=== PATIENT | female | born 1960 | race Caucasian/White ===

== ENCOUNTER 2022-12-10 21:54 | Emergency (ER) | payer MEDICARE, MEDICAID, SELFPAY ==
[2022-12-10 21:55] VITALS: BP 170/55; PULSE 72; RESP 16; TEMP 36.8; O2SAT 99; BMI 25.9
--- NOTE | 2022-12-10 22:22 | ED.VIS.GI ---
HPI HPI - GI History of Present Illness Chief Complaint: Abd Pain Informant: patient and family Abdominal Pain/Flank Pain Onset: Weeks (2) Context: Gradual Onset Timing: Continuous Quality: Stabbing Location: Epigastric, RUQ and LUQ Worsened by: Nothing Relieved by: Nothing Nausea/Vomiting/Emesis GI Symptom: Positive for Nausea and Vomiting Quality: Positive for Nonbilious; Negative for Blood streaks, Coffee ground or Hematemesis Episodes: 4 Diarrhea/Melena/Hematochezia GI Symptom: Positive for Diarrhea and Melena; Negative for Hematochezia Stool Quality: Positive for Black Narrative Narrative: Patient presents with abdominal pain that has been getting worse over the past 2 weeks. Patient has been having pain over her upper abdomen since she got her hepatitis C shot 2 weeks ago. Patient describes it as stabbing. Patient states nothing makes it better nothing makes it worse. Patient denies any radiation of the pain. Patient does admit to some nausea and vomiting but denies any hematemesis or coffee-ground emesis. Patient admits to some diarrhea with black tarry stools. Patient admits to some urinary frequency but denies any dysuria or hematuria. Patient denies any fevers or chills. [facility] Medical History abnormal calcium level Anemia Back problem Blood clot in vein Cancer Chronic bronchitis GERD (gastroesophageal reflux disease) GI problem Heart murmur High triglycerides Hyperlipidemia Kidney disease Kidney failure Neuropathy Stroke Type 1 diabetes Vision problem Home Medications clopidogrel 75 mg tablet (Plavix) 75 mg PO DAILY 01/27/19 [History Last Taken Unknown] esomeprazole magnesium 40 mg capsule,delayed release 40 mg PO DAILY 01/27/19 [History Last Taken Unknown] meclizine 12.5 mg tablet 12.5 mg PO BID 01/27/19 [History Last Taken Unknown] multivitamin,Ca,mineral-folic acid-herbal no.157 400 mcg tablet (Estroven Maximum Strength) 1 tab PO DAILY 01/27/19 [History Last Taken Unknown] amlodipine 2.5 mg tablet 2.5 mg PO DAILY 11/04/19 [History Last Taken Unknown] aspirin 81 mg tablet,delayed release (Adult Aspirin Regimen) 81 mg PO DAILY 02/05/20 [History Last Taken Unknown] atorvastatin 80 mg tablet 80 mg PO QHS 02/05/20 [History Last Taken Unknown] fenofibrate 54 mg tablet 54 mg PO DAILY 02/05/20 [History Last Taken Unknown] rhubarb root extract 4 mg tablet (Estroven Complete Menopause Relief) 4 mg PO QHS 02/05/20 [History Last Taken Unknown] cholecalciferol (vitamin D3) 25 mcg (1,000 unit) capsule 25 mcg PO DAILY 05/13/20 [History Last Taken Unknown] pramipexole 0.125 mg tablet 0.125 mg PO BID 10/26/20 [History Last Taken Unknown] sertraline 100 mg tablet 150 mg PO DAILY 10/26/20 [History Last Taken Unknown] torsemide 20 mg tablet 20 mg PO .COMPLEX 04/26/21 [History Last Taken Unknown] Accu-Chek Guide test strips (blood sugar diagnostic) #100 ea 03/27/22 [Rx Last Taken Unknown] glucagon (human recombinant) 1 mg solution for injection 1 mg subcut ONCE #1 ea 04/12/22 [Rx Last Taken Unknown] insulin lispro 100 unit/mL subcutaneous solution (Humalog U-100 Insulin) 100 unit subcut DAILY #30 mL 05/17/22 [Rx Last Taken Unknown] sevelamer carbonate 800 mg tablet mg 12/10/22 [History Last Taken Unknown] sucralfate 1 gram tablet (Carafate) 1 g PO BID #20 tabs 12/11/22 [Rx Last Taken Unknown] Allergy/AdvReac Type Severity Reaction Status Date / Time acetaminophen [From Percocet] Allergy Unknown Unknown Verified 12/10/22 21:58 hydrocodone [From Vicodin] Allergy Unknown Unknown Verified 12/10/22 21:58 morphine Allergy Unknown Unknown Verified 12/10/22 21:58 oxycodone [From Percocet] Allergy Unknown Unknown Verified 12/10/22 21:58 Family History Unknown Alcoholism Colon cancer Cancer Depression Diabetes Myocardial infarction Hypertension Hyperlipidemia Kidney disease Liver disease Respiratory disease CVA (cerebral vascular accident) Surgical History dialysis fistula graph under collar bone for dialysis History of hysterectomy History of lumpectomy History of shoulder surgery History of vitrectomy laser eye surgery Vascular dialysis catheter in place Social History Smoking Status: Former smoker alcohol intake: never substance use type: does not use ROS ROS ED Constitutional Constitutional ED: Reports chills, fever(s) and subjective Eyes Eyes: Denies blurry vision or change in vision ENT ENT ED: Denies rhinorrhea or sore throat Cardiovascular Cardiovascular: Reports chest pain; Denies palpitations Respiratory/Chest Respiratory/Chest: Reports cough; Denies dyspnea Gastrointestinal Gastrointestinal: Reports abdominal pain, diarrhea, melena, nausea and vomiting Genitourinary Genitourinary ED: Reports urinary frequency; Denies dysuria or hematuria Musculoskeletal Musculoskeletal: Reports neck pain; Denies back pain Integumentary Denies abscess or rash Neurologic Neurologic: Reports headache(s); Denies weakness Allergic/Immunologic Allergic/Immunologic ED: Denies mouth swelling or urticaria EXAM Physical Exam Const Vital Signs: 12/10/22 21:55 12/10/22 23:53 Temperature 98.3 F Temperature Source Temporal Pulse Rate 72 71 Respiratory Rate 16 16 Blood Pressure 170/55 H 182/67 H Blood Pressure Mean 93 105 Pulse Ox 99 97 Oxygen Delivery Method Room Air Room Air Positive well nourished and well developed General Appearance ED: well developed HEENT Reports moist mucous membranes Neck supple and no JVD Resp normal respiratory effort and clear to auscultation bilaterally Cardio regular rate, regular rhythm and no murmurs GI normal to inspection, nondistended, normoactive bowel sounds Palpation: soft and tender epigastric, LUQ and RUQ; Negative for guarding or rebound tenderness present Extremity normal to inspection General Extremety ED: Negative for edema or tenderness General Extremity: Negative for edema Neuro oriented x3, CN's II-XII intact bilaterally and no sensory deficits noted Sensorium / Orientation: alert Motor Exam: strength 5/5 throughout Psych mental status grossly normal Skin no rashes or lesions noted MDM MDM MDM Narrative Medical decision making narrative: Differential diagnosis includes gastritis, gastric ulcer, duodenal ulcer, pancreatitis, gastrointestinal bleeding, urinary tract infection, pyelonephritis, upper gastrointestinal bleeding, and gastroenteritis. CBC will be obtained to assess for anemia and leukocytosis. Comprehensive metabolic profile will be obtained to assess for hepatic function, renal function, and electrolyte abnormality. Lipase will be obtained to assess for pancreatitis. Urinalysis will be obtained to assess for urinary tract infection and pyelonephritis. CT scan of the abdomen pelvis will be obtained to assess for bowel obstruction and perforation. Stool for occult blood will be obtained to assess for gastrointestinal bleeding. History & Record Review Discussion w/independent historian: Patient and Family Additional record(s) reviewed:: Prior labs Lab Data Attestation: I reviewed the patient's lab results. Lab results narrative: CBC was reviewed. Hemoglobin was 11.4 hematocrit was 34.9. These were increased compared to previous result. Comprehensive metabolic profile was reviewed. BUN was 32 and creatinine was 4.71. These are consistent with prior results. Lipase was reviewed and was normal at 16. Urinalysis was reviewed. There is no evidence of urinary tract infection or hematuria. Labs: Laboratory Results - last 24 hr 12/10/22 12/10/22 22:55 23:20 WBC 6.6 RBC 3.39 L Hgb 11.4 L Hct 34.9 L MCV 102.9 H MCH 33.6 H MCHC 32.7 RDW Std Deviation 65.5 H RDW Coeff of [place] 17.1 H Plt Count 147 L MPV 12.4 H Immature Gran % (Auto) 0.300 Neut % (Auto) 53.5 Lymph % (Auto) 18.1 L [place] % (Auto) 23.1 H Eos % (Auto) 3.6 Baso % (Auto) 1.4 H Absolute Neuts (auto) 3.5 Absolute Lymphs (auto) 1.19 Nucleated RBC % 0 Differential Comment SCANNED Anisocytosis 2+ Macrocytosis 1+ Ovalocytes RARE Sodium 140 Potassium 3.4 L Chloride 104 Carbon Dioxide 30.0 Anion Gap 6 BUN 32 H Creatinine 4.71 H Estim Creat Clear Calc 9.58 Est GFR (MDRD) Af Amer 12 L Est GFR (MDRD) Non-Af 10 L BUN/Creatinine Ratio 6.8 L Glucose 110 H Calcium 9.2 Total Bilirubin 0.70 AST 19 ALT 30 Alkaline Phosphatase 123 H Total Protein 6.0 L Albumin 3.7 Globulin 2.3 Albumin/Globulin Ratio 1.6 Lipase 16 Urine Color Yellow Urine Clarity Clear Urine pH 7.0 Ur Specific [place] 1.010 Urine Protein 500 H Urine Glucose (UA) 1000 H Urine Ketones Negative Urine Occult Blood 50 H Urine Nitrite Negative Urine Bilirubin Negative Urine Urobilinogen Normal Ur Leukocyte Esterase 25 H Urine RBC 0-5 SEEN Urine WBC 0-5 SEEN Ur Squamous Epith Cells 0-5 SEEN Urine Bacteria 0 SEEN Urine Mucus 0 SEEN Treatment and Re-Evaluation :: Patient was given IV fluids, Bentyl, and Zofran. Patient was feeling better on reevaluation. Patient was advised of her findings. Stool was negative for occult blood. Patient was advised that this could be from a peptic ulcer disease. Patient is on Nexium already. Patient was given a prescription for Carafate. Patient was given a referral for gastroenterology. Patient was instructed to start with a bland diet and advance as tolerated. Patient was instructed to follow-up with her primary care physician in 5 to 7 days. Patient understood and was agreeable with plan. All questions were answered. Discharge Plan Triage Chief Complaint: Abd Pain ED Provider: Toney Jones Dx/Rx/DC Orders Clinical Impression: Type 1 DM with hypertension and ESRD on dialysis, Abdominal pain Instructions: ED Abdominal Pain Unkn Cause Fem Prescriptions: New sucralfate [Carafate] 1 gram tablet 1 g PO BID Qty: 20 0RF No Action meclizine 12.5 mg tablet 12.5 mg PO BID esomeprazole magnesium 40 mg capsule,delayed release(DR/EC) 40 mg PO DAILY clopidogrel [Plavix] 75 mg tablet 75 mg PO DAILY Estroven Maximum Strength 400 mcg tablet 1 tab PO DAILY amlodipine 2.5 mg tablet 2.5 mg PO DAILY Estroven Cmplt Menopause Rlf 4 mg tablet 4 mg PO QHS fenofibrate 54 mg tablet 54 mg PO DAILY Patient Comments: TAKE 1 TABLET BY MOUTH ONCE DAILY AT BEDTIME atorvastatin 80 mg tablet 80 mg PO QHS Patient Comments: TAKE 1 TABLET BY MOUTH ONCE DAILY AT BEDTIME aspirin [Adult Aspirin Regimen] 81 mg tablet,delayed release (DR/EC) 81 mg PO DAILY cholecalciferol (vitamin D3) 25 mcg (1,000 unit) capsule 25 mcg PO DAILY sertraline 100 mg tablet 150 mg PO DAILY Patient Comments: TAKE 1 & 1 2 (ONE & ONE HALF) TABLETS BY MOUTH ONCE DAILY pramipexole 0.125 mg tablet 0.125 mg PO BID Patient Comments: TAKE 1 TABLET BY MOUTH AT BEDTIME torsemide 20 mg tablet 20 mg PO .COMPLEX Patient Comments: TAKE 1 TABLET BY MOUTH ONCE DAILY ON SUNDAY, SUNDAY, AND SUNDAY ONLY Rx Instructions: 20 mg orally SUNDAY,SUNDAY, SUNDAY,SUNDAY; sevelamer carbonate 800 mg tablet Patient Comments: TAKE 3 TABLETS BY MOUTH WITH MAIN MEALS (BREAKFAST AND DINNER) AND TAKE 1 TO 2 TABLETS BY MOUTH WITH SNACKS (DME) Accu-Chek Guide test strips Strip See Rx Instructions .Route Qty: 100 6RF Rx Instructions: twice daily Glucagon Emergency Kit (human) 1 mg recon soln 1 mg SC ONCE Qty: 1 5RF insulin lispro [Humalog U-100 Insulin] 100 unit/mL solution 100 unit SC DAILY Qty: 30 11RF Rx Instructions: via insulin pump Primary Care Provider: Zee Cast Referrals: Zee Cast DO [Primary Care Provider] - 5-7 Days Telly Kirk DO [Med Staff - Active Staff] - 5-7 Days Disposition Disposition: Home, Self Care
[2022-12-10 23:04] LABS: Absolute Lymphocyte Count 1.19 X10^3/uL (0.83-4.51); Absolute Neutrophil Count 3.5 X10^3/uL (2.0-7.7); Basophil# 0.09 X10^3/uL; Basophil% 1.4 % (0-1); Eosinophil# 0.24 X10^3/uL; Eosinophils% 3.6 % (0-5); Hematocrit 34.9 % (37-47); Hemoglobin 11.4 g/dL (12.0-15.0); Lymphocyte # 1.19 X10^3/ul (0.83-4.51); Lymphocyte % 18.1 % (19-41); Mean Corp Hgb Conc 32.7 g/dL (32-36); Mean Corpuscular Hgb 33.6 pg (27.0-32.0); Mean Corpuscular Volume 102.9 fL (81-99); Mean Platelet Vol. 12.4 fl (6.2-12.0); Monocyte# 1.52 X10^3/uL; Monocyte% 23.1 % (0-10); NRBC Flagged by Analyzer 0 % (0-5); Neutrophil # 3.52 X10^3/uL (2.7-7.7); Neutrophil % 53.5 % (47-70); POSITIVE DIFFERENTIAL YES; POSITIVE MORPHOLOGY YES; Platelet Count 147 K/mm3 (150-450); RBC Distribution Width CV 17.1 % (11.6-14.6); RBC Distribution Width SD 65.5 fl (35.1-43.9); Red Blood Count 3.39 M/mm3 (4.2-5.4); White Blood Count 6.6 K/mm3 (4.4-11.0)
[2022-12-10 23:06] LABS: Differential Indicated SCAN CRITERIA MET
[2022-12-10 23:20] LABS: ALB/GLOB Ratio 1.6 RATIO (0.9-2.4); AST(SGOT) 19 U/L (15-37); Alanine Aminotransfer ALT/SGPT 30 U/L (13-56); Albumin, Serum 3.7 g/dL (3.2-5.0); Alkaline Phosphatase 123 U/L (45-117); Anion Gap 6 (5-15); BUN 32 mg/dL (7-18); BUN/Creat Ratio 6.8 RATIO (10-20); Calcium,Total 9.2 mg/dL (8.5-10.1); Chloride 104 mmol/L (98-107); Creatinine, Serum 4.71 mg/dL (0.55-1.02); EST Glomerular Filtration Rate 10 mL/min (>60); Est Glom Filt Rate - Afr Amer 12 mL/min (>60); Estimated Creatinine Clearance 9.58 ml/min; Globulin 2.3 g/dL (2.2-4.2); Glucose 110 mg/dL (74-106); Lipase 16 U/L (13-75); Potassium 3.4 mmol/L (3.5-5.1); Sodium Level 140 mmol/L (136-145)
[2022-12-10 23:27] LABS: Anisocytosis 2+; Differential Comment SCANNED; Macrocytosis 1+; Ovalocyte RARE
[2022-12-10] MEDS: Dicyclomine 20 MG/2 ML Vial IM (23:27)
[2022-12-10] MEDS: 0.9% Normal Saline 1,000 ML 1000 ML IV (23:33)
[2022-12-10] MEDS: Ondansetron ODT 4 MG Tablet PO (23:43)
[2022-12-10 23:50] LABS: Bacteria 0 SEEN /hpf (None Seen); Mucous, Urine 0 SEEN /hpf (<or=2+)
[2022-12-10 23:51] LABS: Color, Urine Yellow (Yellow); Glucose, Dipstick 1000 mg/dl (Normal); Ketone-Dipstick Negative (Negative); Leukocyte Esterase-Dipstick 25 /ul (Negative); Nitrite-Dipstick Negative (Negative); Occult Blood-Urine 50 /ul (Negative); Protein-Dipstick 500 mg/dl (Negative); Urine Bilirubin Dipstick Negative (Negative); Urine Clarity Clear (Clear); Urine Urobilinogen Normal (Normal)
[2022-12-10 23:53] VITALS: BP 182/67; PULSE 71; RESP 16; O2SAT 97
[2022-12-11 00:08] LABS: Red Blood Cells-Urine 0-5 SEEN /hpf (0-5); Squamous Epithelial Cells - UA 0-5 SEEN /hpf (5-10); White Blood Cells 0-5 SEEN /hpf (0-5)
[2022-12-11 01:01] VITALS: PULSE 72; RESP 19; O2SAT 97
== END 2022-12-11 01:25 | disposition home or self-care (01) ==
PROVIDERS: Emergency Provider Emergency Medicine; PCP Family Medicine; Visit Provider Emergency Medicine
DX: R11.2 Nausea with vomiting, unspecified (principal); Z99.2 Dependence on renal dialysis; E10.22 Type 1 diabetes mellitus with diabetic chronic kidney disease; E10.40 Type 1 diabetes mellitus with diabetic neuropathy, unspecified; I12.0 Hypertensive chronic kidney disease with stage 5 chronic kidney disease or end stage renal disease; N18.6 End stage renal disease; Z79.4 Long term (current) use of insulin; Z87.891 Personal history of nicotine dependence; E78.5 Hyperlipidemia, unspecified; R19.7 Diarrhea, unspecified; R10.9 Unspecified abdominal pain; B19.20 Unspecified viral hepatitis C without hepatic coma; Z86.73 Personal history of transient ischemic attack (TIA), and cerebral infarction without residual deficits; K21.9 Gastro-esophageal reflux disease without esophagitis; Z79.899 Other long term (current) drug therapy; Z79.82 Long term (current) use of aspirin; Z79.85 Long-term (current) use of injectable non-insulin antidiabetic drugs; Z90.710 Acquired absence of both cervix and uterus
CPT/HCPCS: 80053; 81001; 82274; 83690; 85025; 96361; 96372; 96374; 99282; J7030; A4216

== ENCOUNTER 2023-12-02 04:04 | Emergency (ER) | payer MEDICARE, MEDICAID, SELFPAY ==
[2023-12-02 04:05] VITALS: BP 154/64; PULSE 94; RESP 11; TEMP 36.2; O2SAT 96; BMI 25.7
--- NOTE | 2023-12-02 04:39 | EKG12_ITS ---
Test Reason : MHC Blood Pressure : / mmHG Vent. Rate : 088 BPM Atrial Rate : 088 BPM P-R Int : 134 ms QRS Dur : 088 ms QT Int : 370 ms P-R-T Axes : 057 028 065 degrees QTc Int : 447 ms Normal sinus rhythm Normal ECG Confirmed by Patel Celestin ([id number]), editor map BREANN BRYAN ([id number]) on 12/03/2023 10:57:28 AM Referred By: NIDIA Confirmed By:Patel Celestin
[2023-12-02 05:05] VITALS: BP 149/61; PULSE 88; RESP 18; O2SAT 99
[2023-12-02 05:38] LABS: Absolute Lymphocyte Count 0.89 X10^3/uL (0.83-4.51); Absolute Neutrophil Count 5.4 X10^3/uL (2.0-7.7); Basophil# 0.05 X10^3/uL; Basophil% 0.7 % (0-1); Eosinophil# 0.17 X10^3/uL; Eosinophils% 2.3 % (0-5); Lymphocyte # 0.89 X10^3/ul (0.83-4.51); Lymphocyte % 11.8 % (19-41); Mean Corp Hgb Conc 33.3 g/dL (32-36); Mean Corpuscular Hgb 32.6 pg (27.0-32.0); Mean Corpuscular Volume 97.9 fL (81-99); Mean Platelet Vol. 10.1 fl (6.2-12.0); Monocyte# 0.97 X10^3/uL; Monocyte% 12.9 % (0-10); NRBC Flagged by Analyzer 0 % (0-5); Neutrophil # 5.42 X10^3/uL (2.7-7.7); Platelet Count 206 K/mm3 (150-450); RBC Distribution Width CV 12.8 % (11.6-14.6); RBC Distribution Width SD 45.7 fl (35.1-43.9); Red Blood Count 3.37 M/mm3 (4.2-5.4); White Blood Count 7.5 K/mm3 (4.4-11.0)
[2023-12-02 05:57] LABS: Mucous, Urine 0 SEEN /hpf (<or=2+); Red Blood Cells-Urine 0 SEEN /hpf (0-5); White Blood Cells 0 SEEN /hpf (0-5)
[2023-12-02 05:58] LABS: Color, Urine Yellow (Yellow); Glucose, Dipstick 1000 mg/dl (Normal); Ketone-Dipstick Negative (Negative); Leukocyte Esterase-Dipstick Negative /ul (Negative); Nitrite-Dipstick Negative (Negative); Occult Blood-Urine Negative /ul (Negative); Protein-Dipstick 30 mg/dl (Negative); Urine Bilirubin Dipstick Negative (Negative); Urine Clarity Clear (Clear); Urine Urobilinogen Normal (Normal)
[2023-12-02 06:00] VITALS: BP 165/67; PULSE 88; RESP 16; O2SAT 95
[2023-12-02 06:00] LABS: Anion Gap 7 (5-15); BUN 39 mg/dL (7-18); BUN/Creat Ratio 7.7 RATIO (10-20); Calcium,Total 10.3 mg/dL (8.5-10.1); Chloride 98 mmol/L (98-107); Creatinine, Serum 5.09 mg/dL (0.55-1.02); EST Glomerular Filtration Rate 9 mL/min (>60); Est Glom Filt Rate - Afr Amer 11 mL/min (>60); Estimated Creatinine Clearance 9.79 ml/min; Glucose 160 mg/dL (74-106); Phosphorus 3.5 mg/dL (2.5-4.9); Potassium 3.6 mmol/L (3.5-5.1); Sodium Level 137 mmol/L (136-145)
[2023-12-02 06:20] LABS: Amphetamine Urine VISTA NEGATIVE (<1000 ng/mL); Barbiturate Urine VISTA NEGATIVE (< 200 ng/mL); Benzodiazepine Urine VISTA NEGATIVE (< 200 ng/mL); Cocaine Urine VISTA NEGATIVE (< 300 ng/mL); Ecstacy Urine VISTA NEGATIVE (< 500 ng/mL); Methadone Urine VISTA NEGATIVE (< 300 ng/mL); PCP Urine VISTA NEGATIVE (< 25 ng/mL); THC Urine VISTA NEGATIVE (< 50 ng/mL); Vista UDS pH Range 8
[2023-12-02 06:54] LABS: Bacteria 2+ /hpf (None Seen)
[2023-12-02 06:55] LABS: Squamous Epithelial Cells - UA 0-5 SEEN /hpf (5-10)
[2023-12-02 07:00] VITALS: BP 150/65; PULSE 94; RESP 18; O2SAT 98
--- NOTE | 2023-12-02 07:05 | EX.ED.DYSGE1 ---
HPI History of Present Illness Chief Complaint: Mental Health Informant: patient and family Narrative Narrative: Patient is a 63-year-old female with past medical history of insulin-dependent diabetes and end-stage renal disease on dialysis. She was recently in an outside hospital secondary to DKA and during this time would have bouts of hallucinations that required sedation. Family states patient has been paranoid thinking that the government is out to get her or them. Family states that this evening/morning the patient woke from sleep and was screaming and acting uncontrollably and they concerned that potentially she could be progressing into DKA once again as she did present with similar symptoms. They also have concern that she may need evaluated by psychiatry sooner than their outpatient appointment scheduled in the next week. Secondary to this she was brought in for evaluation. Upon arrival to the ER the patient is calm and cooperative. She reports feeling much better. She states that she thinks I just believe I had a nightmare. [facility] Medical History Vision problem Stroke GERD (gastroesophageal reflux disease) Neuropathy Heart murmur Kidney failure Kidney disease High triglycerides Hyperlipidemia abnormal calcium level GI problem Type 1 diabetes Chronic bronchitis Cancer Blood clot in vein Back problem Anemia Home Medications ?Medication ?Instructions ?Recorded ?Last Taken ?Type clopidogrel 75 mg tablet (Plavix) 75 mg PO DAILY 01/27/19 Unknown History esomeprazole magnesium 40 mg 40 mg PO Q12H 01/27/19 Unknown History capsule,delayed release amlodipine 2.5 mg tablet 2.5 mg PO DAILY 11/04/19 Unknown History aspirin 81 mg tablet,delayed 81 mg PO DAILY 02/05/20 Unknown History release (Adult Aspirin Regimen) atorvastatin 80 mg tablet 80 mg PO QHS 02/05/20 Unknown History fenofibrate 54 mg tablet 54 mg PO DAILY 02/05/20 Unknown History cholecalciferol (vitamin D3) 25 25 mcg PO DAILY 05/13/20 Unknown History mcg (1,000 unit) capsule sertraline 100 mg tablet 100 mg PO DAILY 10/26/20 Unknown History torsemide 20 mg tablet 20 mg PO .COMPLEX 04/26/21 Unknown History insulin lispro 100 unit/mL 100 unit subcut DAILY #30 mL 01/26/23 Unknown Rx subcutaneous solution (Humalog U-100 Insulin) mecobalamin (vitamin B12) 1,000 1,000 mcg PO BID 11/01/23 Unknown History mcg chewable tablet pramipexole 0.125 mg tablet 0.125 mg PO QHS 11/01/23 Unknown History sevelamer carbonate 800 mg tablet 800 mg PO BID 11/01/23 Unknown History Accu-Chek Guide test strips (blood #150 ea 11/30/23 Unknown Rx sugar diagnostic) BD Ultra-Fine Shercie Pen Needle 32 #150 ea 11/30/23 Unknown Rx gauge x 5/32 (pen needle, diabetic) levocetirizine 5 mg tablet 5 mg PO QHS 12/02/23 Unknown History ondansetron HCl 8 mg tablet 8 mg PO Q8H PRN PRN nausea 12/02/23 Unknown History rimegepant 75 mg disintegrating 75 mg PO DAILY PRN migraine 12/02/23 Unknown History tablet (Nurtec ODT) headache Allergy/AdvReac Type Severity Reaction Status Date / Time acetaminophen (From Percocet) Allergy Unknown Unknown Verified 12/02/23 04:05 hydrocodone (From Vicodin) Allergy Unknown Unknown Verified 12/02/23 04:05 morphine Allergy Unknown Unknown Verified 12/02/23 04:05 oxycodone (From Percocet) Allergy Unknown Unknown Verified 12/02/23 04:05 haloperidol (From Haldol) AdvReac Other Verified 12/02/23 04:06 Family History Unknown Alcoholism Colon cancer Cancer Depression Diabetes Myocardial infarction Hypertension Hyperlipidemia Kidney disease Liver disease Respiratory disease CVA (cerebral vascular accident) Surgical History graph under collar bone for dialysis Vascular dialysis catheter in place dialysis fistula laser eye surgery History of lumpectomy History of hysterectomy History of shoulder surgery History of vitrectomy Social History Smoking Status: Former smoker alcohol intake: never substance use type: does not use ROS ROS ED Constitutional Constitutional ED: Denies chills or fever(s) ENT ENT ED: Denies rhinorrhea or sore throat Cardiovascular Cardiovascular: Denies chest pain or palpitations Respiratory/Chest Respiratory/Chest: Denies cough or dyspnea Gastrointestinal Gastrointestinal: Denies abdominal pain, diarrhea, nausea or vomiting Genitourinary Genitourinary ED: Denies dysuria Musculoskeletal Musculoskeletal: Denies myalgias Integumentary Denies rash Neurologic Neurologic: Denies headache(s) Psychiatric Psychiatric: Reports anxiety Hematologic/Lymphatic Hematologic/Lymphatic: Denies easy bleeding or easy bruising EXAM Physical Exam Const Vital Signs: 12/02/23 04:05 12/02/23 05:05 12/02/23 06:00 Temperature 97.1 F L Temperature Source Temporal Pulse Rate 94 88 88 Respiratory Rate 11 L 18 16 Blood Pressure 154/64 H 149/61 H 165/67 H Blood Pressure Mean 94 90 99 Pulse Ox 96 99 95 Oxygen Delivery Method Room Air Room Air 12/02/23 07:00 12/02/23 07:11 Temperature 98.9 F Temperature Source Pulse Rate 94 96 Respiratory Rate 18 18 Blood Pressure 150/65 H 150/65 H Blood Pressure Mean 93 93 Pulse Ox 98 99 Oxygen Delivery Method Room Air Positive well nourished and well developed General Appearance ED: well developed; Negative for pallor HEENT Reports dry mucous membranes HEENT Narrative: No tongue or lip swelling no oral lesions no airway edema or compromise No secondary findings in the posterior pharynx to suggest infection Mouth ED: Yes dry mucous membranes Mouth: dry mucous membranes Eyes EOMs intact bilaterally Eyes Narrative: There is a cataract present in the left eye which is chronic in nature and otherwise eye exam is normal Neck supple Neck Narrative: No nuchal rigidity or meningeal signs Resp normal respiratory effort and clear to auscultation bilaterally Cardio regular rate and regular rhythm GI normal to inspection, nondistended, normoactive bowel sounds, non-tender, non-distended and no masses Auscultation: normoactive bowel sounds Palpation: soft Extremity normal to inspection Neuro oriented x3, CN's II-XII intact bilaterally and no sensory deficits noted Sensorium / Orientation: alert Motor Exam: strength 5/5 throughout Psych mental status grossly normal Psych Narrative: Patient does endorse sensation/thoughts that the government is out to either get her or her children in trouble but she denies any auditory or visual hallucinations she denies any homicidal or suicidal ideation Mood & Affect: anxious Skin no rashes or lesions noted Skin Narrative: Skin turgor is increased General Skin Exam: Negative for jaundice or pallor MDM MDM MDM Narrative Medical decision making narrative: Patient presented to the ER hypertensive but otherwise with stable vitals. Family reported uncontrollable screaming at home and had concern for hallucinations and potential secondary derangement to her blood sugars from this as she did present similar when she was in the hospital DKA. Differential diagnosis is for acute paranoia versus UTI versus acute blood loss anemia versus DKA. Secondary to this basic blood work was obtained and even the patient is on dialysis she reports making urine so a urine sample was ordered. Blood work revealed elevated creatinine which is consistent with her end-stage renal disease but otherwise no clinically significant finding. Urine sample showed +2 bacteria but there are no white blood cells patient does not have leukocytosis and she does not endorse any type of dysuria and therefore I feel this is colonization and not true infection and there is no need for antibiotic. The patient's anion gap is not elevated her serum bicarb is normal and therefore there is no laboratory findings concerning for DKA. On reevaluation the patient is awake alert and oriented she remains calm and cooperative. Patient and family both state that they would feel comfortable taking her home at this time as they have had resolution of symptoms and workup today shows no sign of acute infection or DKA. History & Record Review Discussion w/independent historian: Patient and Family Lab Data Attestation: I reviewed the patient's lab results. Labs: Laboratory Results - last 24 hr 12/02/23 12/02/23 05:28 05:51 WBC 7.5 RBC 3.37 L Hgb 11.0 L Hct 33.0 L MCV 97.9 MCH 32.6 H MCHC 33.3 RDW Std Deviation 45.7 H RDW Coeff of [place] 12.8 Plt Count 206 MPV 10.1 Immature Gran % (Auto) 0.300 Neut % (Auto) 72.0 H Lymph % (Auto) 11.8 L [place] % (Auto) 12.9 H Eos % (Auto) 2.3 Baso % (Auto) 0.7 Absolute Neuts (auto) 5.4 Absolute Lymphs (auto) 0.89 Nucleated RBC % 0 Sodium 137 Potassium 3.6 Chloride 98 Carbon Dioxide 32.0 Anion Gap 7 BUN 39 H Creatinine 5.09 H Estim Creat Clear Calc 9.79 Est GFR (MDRD) Af Amer 11 L Est GFR (MDRD) Non-Af 9 L BUN/Creatinine Ratio 7.7 L Glucose 160 H Calcium 10.3 H Phosphorus 3.5 Urine Color Yellow Urine Clarity Clear Urine pH 8.0 Ur Specific [place] 1.010 Urine Protein 30 H Urine Glucose (UA) 1000 H Urine Ketones Negative Urine Occult Blood Negative Urine Nitrite Negative Urine Bilirubin Negative Urine Urobilinogen Normal Ur Leukocyte Esterase Negative Urine RBC 0 SEEN Urine WBC 0 SEEN Ur Squamous Epith Cells 0-5 SEEN Urine Bacteria 2+ Urine Mucus 0 SEEN Urine Opiates Screen NEGATIVE Urine Methadone Screen NEGATIVE Ur Barbiturates Screen NEGATIVE Ur Phencyclidine Scrn NEGATIVE Ur Amphetamines Screen NEGATIVE MDMA (Ecstasy) Screen NEGATIVE U Benzodiazepines Scrn NEGATIVE Urine Cocaine Screen NEGATIVE U Cannabinoids Screen NEGATIVE Ur Drug Screen Comment Ethyl Alcohol 5.0 Discharge Plan Triage Chief Complaint: Mental Health ED Provider: Audie Harden Dx/Rx/DC Orders Clinical Impression: Insulin dependent diabetes mellitus, ESRD (end stage renal disease) on dialysis, Mood and affect disturbance Instructions: Diabetes: Caring for Your Body, CKD Dc Prescriptions: No Action esomeprazole magnesium 40 mg capsule,delayed release(DR/EC) 40 mg PO Q12H clopidogrel [Plavix] 75 mg tablet 75 mg PO DAILY amlodipine 2.5 mg tablet 2.5 mg PO DAILY fenofibrate 54 mg tablet 54 mg PO DAILY Patient Comments: TAKE 1 TABLET BY MOUTH ONCE DAILY AT BEDTIME atorvastatin 80 mg tablet 80 mg PO QHS Patient Comments: TAKE 1 TABLET BY MOUTH ONCE DAILY AT BEDTIME aspirin [Adult Aspirin Regimen] 81 mg tablet,delayed release (DR/EC) 81 mg PO DAILY cholecalciferol (vitamin D3) 25 mcg (1,000 unit) capsule 25 mcg PO DAILY sertraline 100 mg tablet 100 mg PO DAILY Patient Comments: TAKE 1 & 1 2 (ONE & ONE HALF) TABLETS BY MOUTH ONCE DAILY pramipexole 0.125 mg tablet 0.125 mg PO QHS Patient Comments: TAKE 1 TABLET BY MOUTH AT BEDTIME torsemide 20 mg tablet 20 mg PO .COMPLEX Patient Comments: TAKE 1 TABLET BY MOUTH ONCE DAILY ON SUNDAY, SUNDAY, AND SUNDAY ONLY Rx Instructions: 20 mg orally SUNDAY,SUNDAY, SUNDAY,SUNDAY; insulin lispro [Humalog U-100 Insulin] 100 unit/mL solution 100 unit SC DAILY Qty: 30 11RF Rx Instructions: via insulin pump mecobalamin (vitamin B12) 1,000 mcg tablet,chewable 1,000 mcg PO BID sevelamer carbonate 800 mg tablet 800 mg PO BID Patient Comments: TAKE 3 TABLETS BY MOUTH WITH MAIN MEALS (BREAKFAST AND DINNER) AND TAKE 1 TO 2 TABLETS BY MOUTH WITH SNACKS levocetirizine 5 mg tablet 5 mg PO QHS Nurtec ODT 75 mg tablet,disintegrating 75 mg PO DAILY PRN (Reason: migraine headache) ondansetron HCl 8 mg tablet 8 mg PO Q8H PRN PRN (Reason: nausea) (DME) pen needle, diabetic [BD Ultra-Fine Sherice Pen Needle] 32 gauge x 5/32 needle See Rx Instructions .ROUTE .MEDSUPPLY Qty: 150 4RF Rx Instructions: 5 times daily (DME) Accu-Chek Guide test strips Strip See Rx Instructions .Route Qty: 150 6RF Rx Instructions: 4 times daily Primary Care Provider: Zee Cast Referrals: Zee Cast DO [Primary Care Provider] - Activity Restrictions/Additional Instructions: Please continue all of your home medication as directed by your doctor and keep your outpatient psychiatric follow-up appointment. If you have any further concerns or worsening of symptoms please return to the hospital for repeat evaluation Print Language: Hebrew Disposition Disposition: Home, Self Care Discharge Date/Time: 12/02/23 07:12
[2023-12-02 07:11] VITALS: BP 150/65; PULSE 96; RESP 18; TEMP 37.2; O2SAT 99
== END 2023-12-02 07:12 | disposition home or self-care (01) ==
PROVIDERS: Emergency Provider Emergency Medicine; PCP Family Medicine; Visit Provider Emergency Medicine
DX: F39 Unspecified mood [affective] disorder (principal); N18.6 End stage renal disease; E10.22 Type 1 diabetes mellitus with diabetic chronic kidney disease; Z79.4 Long term (current) use of insulin; E78.5 Hyperlipidemia, unspecified; Z99.2 Dependence on renal dialysis; Z87.891 Personal history of nicotine dependence; Z86.73 Personal history of transient ischemic attack (TIA), and cerebral infarction without residual deficits; Z79.02 Long term (current) use of antithrombotics/antiplatelets; K21.9 Gastro-esophageal reflux disease without esophagitis; Z79.899 Other long term (current) drug therapy; Z90.710 Acquired absence of both cervix and uterus
CPT/HCPCS: 80048; 80307; 81001; 82077; 84100; 85025; 93005; 99285; A4216

== ENCOUNTER → 2024-04-29 | Outpatient (CLI) | payer MEDICARE, MEDICAID, SELFPAY ==
[2024-04-29 11:43] LABS: ALB/GLOB Ratio 1.1 RATIO (0.9-2.4); Globulin 3.4 g/dL (2.2-4.2); LDH 202 U/L (84-246); Protein, Total 7.1 g/dL (6.4-8.2)
== END | disposition home or self-care (01) ==
PROVIDERS: PCP Family Medicine; Referring Provider Internal Medicine Critical Care Medicine; Visit Provider Internal Medicine Critical Care Medicine
DX: J90 Pleural effusion, not elsewhere classified (principal)
CPT/HCPCS: 36415; 83615; 84155

== ENCOUNTER → 2024-05-06 | Outpatient (CLI) | payer MEDICARE, MEDICAID, SELFPAY ==
--- NOTE | 2024-05-06 | FLU_PTH ---
PATIENT: LILIAM SANCHEZ LOC: U#:[id number] AGE/SX: 64/F ROOM: RE05/06/[address]: Dr. Geraldo Leung DO : 1960 BED: DIS: 05/06/2024 SPEC #: [id number] RECD: 05/06/24 08:44 STATUS: ISSAC REQ #: [id number] KRISTI: 05/06/24 00:[address]: Geraldo Leung DEPT: CYTOLOGY RECD BY: Arlyn Patterson ENTERED: 05/06/24 11:06 SP TYPE: Fluid OTHR DR: Dr. Zee Cast DO Tissues: Pleural fluid, NOS Procedures: Special Stain Group II Surgery Specimen Level IV Cytospin Fluid HEADER OPERATION: Thoracentesis fluid PRE-OP DIAGNOSIS: Pleural effusion TISSUE SUBMITTED: Thoracentesis fluid for cytology DIAGNOSIS CYTOLOGY Thoracentesis fluid for cytology (cytospins and cellblock): Negative for malignant cells. See comment. 05/07/2024 COMMENT Clinical correlation and appropriate follow up are necessary. CYTOLOGY STUDY Slides are reviewed. CYTOLOGY GROSS Received is 90 ml of dark-ike cloudy fluid labeled with the patient's name and and designated per the requisition as Thoracentesis fluid. Submitted for cytology preparation including cell block. Mr 05/06/2024 TC:5 CPT: 87727,64969
--- NOTE | 2024-05-06 07:36 | US_ITS ---
EXAM: THORACENTESIS W US CLINICAL HISTORY: Left pleural effusion. COMPARISON: None. TECHNIQUE: A left thoracentesis was performed. The procedure as well as the benefits and possible complications including bleeding and pneumothorax were explained to the patient. Informed consent was obtained. Following this, the over lying skin was prepped and draped in the usual sterile fashion. Following local anesthetic complication, a 5 [place] catheter wa s placed into the pleural cavity. FINDINGS: 770 ike color fluid was aspirated. A 100 mL sample was sent to the laboratory. US/Thoracentesis W US IMPRESSION: Successful left thoracentesis. Reading Location: [facility]
[2024-05-06 08:13] VITALS: BP 119/62; PULSE 74; RESP 16; O2SAT 98
[2024-05-06 08:15] VITALS: BP 140/65; PULSE 73; RESP 16; O2SAT 98
[2024-05-06] MEDS: Lidocaine 2% (20 ml mdv) 20 ML Vial INFILT (08:21)
[2024-05-06 08:23] VITALS: BP 152/59; PULSE 73; RESP 16; O2SAT 96
[2024-05-06 08:24] VITALS: BP 152/59; PULSE 71; RESP 16; O2SAT 96
[2024-05-06 08:28] VITALS: BP 174/68; PULSE 70; RESP 16; O2SAT 98
--- NOTE | 2024-05-06 08:30 | RAD_ITS ---
PROCEDURE: CHEST INSP/EXP 2 VIEW REASON FOR EXAM: Post thoracentesis. TECHNIQUE: Two-view AP portable upright inspiratory and expiratory chest. COMPARISON: Chest x-ray of 02/21/2024. RAD/Chest Insp/Exp 2 View IMPRESSION: Bilateral arm surgical clips are seen, and left axillary/thoracic surgical clip s are noted. Left upper thoracic stent in place. No right pleural effusion is seen. A small left pleural effusion is noted. No significant pneumothorax is noted. No evidence of pulmonary edema. Mild left basilar atelectasis is seen. The cardiomediastinal silhouette is within the normal range. Reading Location: [id number]
[2024-05-06 08:35] VITALS: BP 153/61; PULSE 69; RESP 16; O2SAT 97
== END | disposition home or self-care (01) ==
PROVIDERS: PCP Family Medicine; Referring Provider Internal Medicine Critical Care Medicine; Visit Provider Internal Medicine Critical Care Medicine
DX: J90 Pleural effusion, not elsewhere classified (principal)
CPT/HCPCS: 32555; 71046; 88108; 88305; 88313

== ENCOUNTER → 2024-06-03 | Outpatient (CLI) | payer MEDICARE, MEDICAID, SELFPAY | END | disposition home or self-care (01) | LOC: PSN 07:48 | PROVIDERS: PCP Family Medicine; Referring Provider Nurse Practitioner Family; Visit Provider Nurse Practitioner Family | DX: R05.9 Cough, unspecified (principal) | CPT/HCPCS: 94060; 94726; 94729 ==